=== PATIENT | male | born 1990 | race Caucasian/White ===

== ENCOUNTER 2020-11-29 17:07 | Outpatient (REF) | payer OTHER, SELFPAY ==
--- NOTE | 2020-11-29 12:22 | SKI_PTH ---
PATIENT: Angel Talley LOC: [facility] U#:[id number] AGE/SX: 30/M ROOM: RE11/29/[address]: Dwaine Khan : 1990 BED: DIS: 11/29/2020 SPEC #: [id number] RECD: 11/29/20 18:17 STATUS: DAMIAN REQ #: [id number] GENIA: 11/29/20 12:[address]: Dwaine Khan DEPT: Surgical Specimen RECD BY: Rebecca Jordan ENTERED: 11/29/20 18:17 SP TYPE: JAE CARIAS DR: Unknown,Unknown Tissues: 1 - SKIN BIOPSY(SHAVE/PUNCH) Procedures: SKIN LEVEL 4 Comments: [id number]
== END 2020-11-29 17:08 | disposition home or self-care (01) ==
LOC: LBN 17:07
PROVIDERS: Visit Provider Nurse Practitioner Family
DX: L98.6 Other infiltrative disorders of the skin and subcutaneous tissue
CPT/HCPCS: 88305